=== PATIENT | female | born 1995 | race Two or more races ===

== ENCOUNTER → 2017-07-02 | Emergency (ER) | payer OTHER ==
[~2017-07-02] VITALS: Ht 157.5 cm; Wt 42.2 kg
[~2017-07-02] MED LIST: CLONAZEPAM2 MG; LORAZEPAM2 MG
== END | disposition home or self-care (01) ==
LOC: ER 14:03
DX: F41.9 Anxiety disorder, unspecified (principal); T42.4X5A Adverse effect of benzodiazepines, initial encounter; Y92.89 Other specified places as the place of occurrence of the external cause